=== PATIENT | male | born 1960 | race African-American/Black ===

== ENCOUNTER 2019-02-01 20:12 | Emergency (ER) | payer MEDICARE, MEDICAID ==
[~2019-02-01 20:12] MED LIST: ISOVUE-370 76%-LOCM 1 ML ONE
[2019-02-01 22:04] LABS: #Basophils 0.1 thou/uL (0.0-0.2); #Eosinphils 0.1 thou/uL (0.0-0.7); #Lymphocytes 1.8 thou/uL (1.20-3.40); #Monocytes 0.8 thou/uL (0.11-0.59); #Neutrophils 8.4 thou/uL (1.40-6.50); %Basophils 0.9 % (0.0-1.0); %Eosinophils 1.1 % (0.0-10.0); %Monocytes 6.9 % (0.0-10.0); %Neutrophils 75.1 % (42.0-75.0); Hemoglobin 15.4 g/dL (14.0-18.0); Mean Corpuscular HGB CONC 33.8 g/dL (32.0-36.0); Mean Corpuscular Hemoglobin 29.4 pg (27.0-31.0); Mean Corpuscular Volume 87.1 fL (78.0-98.0); Mean Platelet Volume 8.4 fL (7.4-10.4); Platelet Count 255 thou/uL (130-400); RBC Distribution Width 11.6 % (11.5-14.5); Red Blood Cell (RBC) Count 5.22 mill/uL (4.70-6.10); White Blood Cell (WBC) Count 11.2 thou/uL (4.8-10.8)
[2019-02-01] MEDS ORDERED: Metoclopramide HCl 10 MG/2 ML VIAL ONE (22:07)
[2019-02-01] MEDS ORDERED: Ketorolac Tromethamine 30 MG/ML VIAL ONE (22:07)
[2019-02-01] MEDS ORDERED: diphenhydrAMINE 50 MG/ML VIAL ONE (22:07)
[2019-02-01] MEDS ORDERED: Acetaminophen 500 MG TAB ONE (22:07)
--- NOTE | 2019-02-01 22:10 | RAD ---
EXAM: Portable chest PROVIDED CLINICAL HISTORY: Palpitations COMPARISON: None FINDINGS: Cardiac and mediastinal silhouette is within normal limits. No focal consolidation, pleural fluid or pneumothorax evident. IMPRESSION: No evidence for an acute cardiopulmonary process.
[2019-02-01] MEDS ORDERED: Ondansetron PF 4 MG/2 ML Vial ONE (22:19)
[2019-02-01 22:25] LABS: ALT (SGPT) 158 U/L (8-55); AST (SGOT) 148 U/L (5-34); Albumin 4.3 g/dL (3.5-5.0); Alkaline Phosphatase 138 U/L (40-150); Anion Gap 16 mmol/L (10-20); BUN (Urea Nitrogen) 13 mg/dL (8.4-25.7); Bilirubin, Total 1.1 mg/dL (0.2-1.2); Calc. Creatinine Clearance 0 mL/min (70-130); Calcium 8.8 mg/dL (7.8-10.44); Carbon Dioxide 24 mmol/L (22-29); Chloride 98 mmol/L (98-107); Estimated GFR-MDRD Greater than 90; Globulin 3.1 g/dL (2.4-3.5); Glucose 158 mg/dL (70-105); Potassium 4.1 mmol/L (3.5-5.1); Protein, Total 7.4 g/dL (6.0-8.3); Sodium 134 mmol/L (136-145)
[2019-02-01 23:09] LABS: Bilirubin Negative (Negative); Blood, Urine Negative (Negative); Clarity Clear (Clear); Glucose, Urine (Dipstick) 30 mg/dL (Negative); Leukocyte Negative Leu/uL (Negative); Nitrite Negative (Negative); Protein, Urine (Dipstick) Negative (Neg-Trace); Urobilinogen Normal mg/dL (Less than 2)
[2019-02-01 23:15] LABS: Base Excess-Venous -0.5 mmol/L (-2.0 to 3.0); Bicarbonate (HCO3v) 23.1 mmol/L (22.0-28.0); CO2 Tension (PvCO2) 33.7 mmHg (40.0-50.0); Calcium, Ionized 0.93 mmol/L (See Comments:); Chloride 101 mmol/L (98-107); Hemoglobin - Calc 12.4 g/dL (14.0-18.0); Potassium 3.8 mmol/L (3.5-5.1); Sodium 133 mmol/L (138-145); T. Carbon Dioxide 24.2 mmol/L (22.0-28.0); vO2 Saturation-calc 84.6 % (60.0-85.0)
[2019-02-01 23:22] LABS: Magnesium 1.3 mg/dL (1.6-2.6)
--- NOTE | 2019-02-01 23:43 | CT ---
EXAM: CT abdomen and pelvis with IV contrast PROVIDED CLINICAL HISTORY: Nausea and vomiting COMPARISON: 06/05/2016 FINDINGS: The visualized lung bases are free of significant opacity. The solid abdominal organs demonstrate no significant abnormality. There is fluid density noted within portions of the colon, notably the cecum which is mildly distende d. There is no evidence for bowel obstruction. There is inflammatory fat stranding, free fluid or free air apparent. There is no evidence for appendicitis. No regional lymph node enlargement apparent. The regional major vascular structures appear unremarkab le. The osseous structures demonstrate no concerning lytic or blastic lesions. IMPRESSION: Fluid density within portions of colon may reflect a diarrheal illness.
--- NOTE | 2019-02-06 13:24 | EKG ---
Test Reason : Blood Pressure : / mmHG Vent. Rate : 116 BPM Atrial Rate : 116 BPM P-R Int : 150 ms QRS Dur : 090 ms QT Int : 324 ms P-R-T Axes : 061 061 058 degrees QTc Int : 450 ms Sinus tachycardia with occasional , and consecutive Premature ventricular complexes Possible Left atrial enlargement Abnormal ECG Confirmed by MAGO THOMPSON, FIONA ([id number]), art editor KOBY PARSON ([id number]) on 02/06/2019 1:24:30 PM Referred By: Confirmed By:FIONA MERCEDES MD
== END 2019-02-02 00:50 ==
LOC: EEVIPCON 20:12 → ERS 20:12
DX: E86.0 Dehydration (principal); R19.7 Diarrhea, unspecified; R51 Headache; E11.40 Type 2 diabetes mellitus with diabetic neuropathy, unspecified; K21.9 Gastro-esophageal reflux disease without esophagitis; I10 Essential (primary) hypertension; Z79.899 Other long term (current) drug therapy; Z79.84 Long term (current) use of oral hypoglycemic drugs
CPT/HCPCS: 36415; 36416; 71045; 74177; 80053; 81003; 82010; 82330; 82550; 82803; 83605; 83735; 84100; 84484; 85025; 93005; 96365; 96366; 96375; J1200; J1885; J2405; J2765; Q9966

== ENCOUNTER 2019-04-26 16:16 | Emergency (ER) | payer MEDICARE, MEDICAID ==
--- NOTE | 2019-04-26 17:23 | CT ---
CT Abdomen Pelvis W Con History: Abdominal pain. Comparison: CT abdomen and pelvis February 01, 2019 Findings: Lung bases are clear. No pericardial effusion. Liver, adrenal glands, pancreas are unremarkable. 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 Suture material around the cecal apex. Moderate stool burden. No dilated loops of large or small bowel. No free intraperitoneal gas or fluid. Cyst superior pole right kidney is unchanged. No retroperitoneal periaortic adenopathy. Impression: No acute inflammatory process within the abdomen or pelvis.
[2019-04-26] MEDS ORDERED: Ondansetron PF 4 MG/2 ML Vial ONE (17:24)
[2019-04-26] MEDS ORDERED: Morphine 4 MG/ML VIAL ONE (17:24)
[2019-04-26 18:48] LABS: #Basophils 0.1 thou/uL (0.0-0.2); #Eosinphils 0.1 thou/uL (0.0-0.7); #Lymphocytes 3.9 thou/uL (1.20-3.40); #Monocytes 0.6 thou/uL (0.11-0.59); #Neutrophils 7.5 thou/uL (1.40-6.50); %Basophils 0.7 % (0.0-1.0); %Eosinophils 0.9 % (0.0-10.0); %Lymphocytes 32.4 % (21.0-51.0); %Monocytes 4.6 % (0.0-10.0); %Neutrophils 61.5 % (42.0-75.0); Hemoglobin 13.3 g/dL (14.0-18.0); Mean Corpuscular HGB CONC 36.4 g/dL (32.0-36.0); Mean Corpuscular Hemoglobin 30.9 pg (27.0-31.0); Mean Corpuscular Volume 84.8 fL (78.0-98.0); Mean Platelet Volume 8.2 fL (7.4-10.4); Platelet Count 267 thou/uL (130-400); RBC Distribution Width 11.7 % (11.5-14.5); Red Blood Cell (RBC) Count 4.31 mill/uL (4.70-6.10); White Blood Cell (WBC) Count 12.2 thou/uL (4.8-10.8)
[2019-04-26 18:56] LABS: ALT (SGPT) 30 U/L (8-55); AST (SGOT) 37 U/L (5-34); Albumin 3.8 g/dL (3.5-5.0); Alkaline Phosphatase 82 U/L (40-110); Anion Gap 10 mmol/L (10-20); BUN (Urea Nitrogen) 10 mg/dL (8.4-25.7); Bilirubin, Total 0.6 mg/dL (0.2-1.2); Calc. Creatinine Clearance 0 mL/min (70-130); Carbon Dioxide 27 mmol/L (22-29); Chloride 102 mmol/L (98-107); Estimated GFR-MDRD Greater than 90; Globulin 2.9 g/dL (2.4-3.5); Glucose 164 mg/dL (70-105); Lipase 17 U/L (8-78); Potassium 4.1 mmol/L (3.5-5.1); Protein, Total 6.7 g/dL (6.0-8.3); Sodium 135 mmol/L (136-145)
[2019-04-26] MEDS ORDERED: Dicyclomine 20 MG TAB ONE (19:16)
[2019-04-26 20:16] LABS: Bilirubin Negative (Negative); Blood, Urine Negative (Negative); Clarity Clear (Clear); Glucose, Urine (Dipstick) 500 mg/dL (Negative); Leukocyte Negative Leu/uL (Negative); Nitrite Negative (Negative); Protein, Urine (Dipstick) 10 mg/dL (Neg-Trace); Urobilinogen Normal mg/dL (Less than 2)
== END 2019-04-26 21:30 | disposition home or self-care (01) ==
LOC: ERS 16:16
DX: R10.30 Lower abdominal pain, unspecified (principal); R10.814 Left lower quadrant abdominal tenderness; R10.813 Right lower quadrant abdominal tenderness; E11.40 Type 2 diabetes mellitus with diabetic neuropathy, unspecified; I10 Essential (primary) hypertension; K21.9 Gastro-esophageal reflux disease without esophagitis; Z79.899 Other long term (current) drug therapy; Z79.84 Long term (current) use of oral hypoglycemic drugs
CPT/HCPCS: 36415; 74177; 80053; 81003; 83690; 85025; 96361; 96374; 96375; J2270; J2405; Q9966

== ENCOUNTER 2020-04-19 10:20 | Outpatient (CLI) | payer MEDICARE, MEDICAID ==
--- NOTE | 2020-04-19 11:03 | RAD ---
Exam:Right shoulder 3 views HISTORY: Pain. COMPARISON: None FINDINGS: Glenohumeral joint space is preserved. No fracture or dislocation. Mild degenerative change sacrum uncovertebral joint space. Visualized right ribs and lung parenchyma do not demonstrate any acute abnormality. IMPRESSION: No fracture or dislocation.
== END 2020-04-19 10:21 | disposition home or self-care (01) ==
LOC: BICRAD 10:20
PROVIDERS: ATTEND Family Medicine
DX: M25.511 Pain in right shoulder (principal)

== ENCOUNTER 2020-09-26 10:34 | Outpatient (CLI) | payer MEDICARE, MEDICAID | END 2020-09-26 10:35 | disposition home or self-care (01) | LOC: BICRAD 10:34 | PROVIDERS: ATTEND Family Medicine | DX: M79.605 Pain in left leg (principal); M47.816 Spondylosis without myelopathy or radiculopathy, lumbar region | CPT/HCPCS: 72100 ==

== ENCOUNTER 2022-03-08 15:25 | Emergency (ER) | payer MEDICARE, MEDICAID ==
[~2022-03-08 15:25] MED LIST changes: -ISOVUE-370 76%-LOCM 1 ML ONE; +Iopamidol-370 76% 500 ML 1 ML ONE
[2022-03-08 17:19] LABS: #Basophils 0.1 thou/uL (0.0-0.2); #Eosinphils 0.1 thou/uL (0.0-0.7); #Lymphocytes 2.3 thou/uL (1.20-3.40); #Monocytes 0.5 thou/uL (0.11-0.59); #Neutrophils 8.6 thou/uL (1.40-6.50); %Basophils 0.7 % (0.0-1.0); %Eosinophils 1.2 % (0.0-10.0); %Lymphocytes 19.5 % (21.0-51.0); %Monocytes 4.5 % (0.0-10.0); Hemoglobin 14.8 g/dL (14.0-18.0); Mean Corpuscular HGB CONC 35.8 g/dL (32.0-36.0); Mean Corpuscular Hemoglobin 30.6 pg (27.0-31.0); Mean Corpuscular Volume 85.6 fL (78.0-98.0); Mean Platelet Volume 8.1 fL (7.4-10.4); Platelet Count 278 thou/uL (130-400); RBC Distribution Width 11.5 % (11.5-14.5); Red Blood Cell (RBC) Count 4.84 mill/uL (4.70-6.10); White Blood Cell (WBC) Count 11.6 thou/uL (4.8-10.8)
[2022-03-08] MEDS ORDERED: Ondansetron PF 4 MG/2 ML Vial ONE (17:24)
[2022-03-08 17:43] LABS: ALT (SGPT) 21 U/L (8-55); AST (SGOT) 20 U/L (5-34); Albumin 4.3 g/dL (3.4-4.8); Alkaline Phosphatase 88 U/L (40-110); Anion Gap 16 mmol/L (10-20); BUN (Urea Nitrogen) 9 mg/dL (8.4-25.7); Calc. Creatinine Clearance 0 mL/min (70-130); Calcium 9.7 mg/dL (7.8-10.44); Carbon Dioxide 26 mmol/L (23-31); Chloride 99 mmol/L (98-107); Estimated GFR 82; Globulin 3.5 g/dL (2.4-3.5); Glucose 228 mg/dL (80-115); Lipase 32 U/L (8-78); Potassium 4.7 mmol/L (3.5-5.1); Protein, Total 7.8 g/dL (5.8-8.1); Sodium 136 mmol/L (136-145)
[2022-03-08] MEDS ORDERED: Dicyclomine 20 MG TAB ONE (17:44)
== END 2022-03-08 19:09 | disposition home or self-care (01) ==
LOC: ERS 15:25
DX: R11.2 Nausea with vomiting, unspecified (principal); R10.84 Generalized abdominal pain; E11.9 Type 2 diabetes mellitus without complications; I10 Essential (primary) hypertension; E78.00 Pure hypercholesterolemia, unspecified; K21.9 Gastro-esophageal reflux disease without esophagitis
CPT/HCPCS: 74177; 80053; 83690; 85025; 93005; 96361; 96374; J2405; Q9967

== ENCOUNTER 2022-09-05 19:29 | Emergency (ER) | payer MEDICARE, MEDICAID ==
[2022-09-05 20:36] LABS: #Basophils 0.1 thou/uL (0.0-0.2); #Lymphocytes 1.7 thou/uL (1.20-3.40); #Monocytes 0.5 thou/uL (0.11-0.59); #Neutrophils 11.7 thou/uL (1.40-6.50); %Basophils 0.5 % (0.0-1.0); %Eosinophils 0.2 % (0.0-10.0); %Lymphocytes 12.3 % (21.0-51.0); %Monocytes 3.7 % (0.0-10.0); %Neutrophils 83.3 % (42.0-75.0); Hemoglobin 15.2 g/dL (14.0-18.0); Mean Corpuscular HGB CONC 36.2 g/dL (32.0-36.0); Mean Corpuscular Hemoglobin 31.3 pg (27.0-31.0); Mean Corpuscular Volume 86.4 fl (78.0-98.0); Mean Platelet Volume 8.9 fL (7.4-10.4); Platelet Count 235 10x3/uL (130-400); RBC Distribution Width 11.8 % (11.5-14.5); Red Blood Cell (RBC) Count 4.86 mill/uL (4.70-6.10)
[2022-09-05 20:53] LABS: ALT (SGPT) 14 U/L (8-55); AST (SGOT) 18 U/L (5-34); Albumin 4.3 g/dL (3.4-4.8); Alkaline Phosphatase 103 U/L (40-110); Anion Gap 18 mmol/L (10-20); BUN (Urea Nitrogen) 13 mg/dL (8.4-25.7); Bilirubin, Total 0.8 mg/dL (0.2-1.2); Calc. Creatinine Clearance 0 mL/min (70-130); Calcium 9.9 mg/dL (7.8-10.44); Carbon Dioxide 23 mmol/L (23-31); Chloride 99 mmol/L (98-107); Estimated GFR 70; Globulin 3.7 g/dL (2.4-3.5); Glucose 292 mg/dL (80-115); Lipase 14 U/L (8-78); Potassium 4.4 mmol/L (3.5-5.1); Sodium 136 mmol/L (136-145)
[2022-09-05] MEDS ORDERED: Ondansetron PF 4 MG/2 ML Vial ONE (22:30)
[2022-09-05] MEDS ORDERED: Morphine 4 MG/ML VIAL ONE (22:30)
[2022-09-05] MEDS ORDERED: Polyethylene Glycol 3350 17 GM Packet PO SCH (23:30)
== END 2022-09-06 00:12 | disposition home or self-care (01) ==
LOC: ERS 19:29
DX: K56.41 Fecal impaction (principal); E11.65 Type 2 diabetes mellitus with hyperglycemia; E78.00 Pure hypercholesterolemia, unspecified; I10 Essential (primary) hypertension; K21.9 Gastro-esophageal reflux disease without esophagitis; D72.829 Elevated white blood cell count, unspecified
CPT/HCPCS: 36415; 71045; 74177; 80053; 83690; 84484; 85025; 93005; 96361; 96374; 96375; J2270; J2405

== ENCOUNTER 2024-06-08 11:47 | Outpatient (CLI) | payer MEDICARE | END 2024-06-08 11:48 | disposition home or self-care (01) | LOC: BICRAD 11:47 | PROVIDERS: ATTEND Family Medicine | DX: M79.605 Pain in left leg (principal) | CPT/HCPCS: 72100 ==